=== PATIENT | male | born 2000 | race Caucasian/White ===

== ENCOUNTER → 2023-12-24 13:47 | Outpatient (CLI) | payer OTHER, SELFPAY ==
--- NOTE | 2023-12-24 13:51 | DI.ECHO.S_ITS ---
[facility] : : [address] : [address] : : [place], : : [place] [address] : : Phone: [phone] Echocardiogram Report + + :Name: MIKO BLOOM Study Date: 12/24/2023 Height: 74 in : :[facility] ReadingLocation: Weight: 170 lb : : Gender: Male BSA: 2.0 m2 : :: 2000 Age: 23 yrs BP: 107/75 mmHg: :Reason For Study: CARDIOMEGALY : :Ordering Physician: OZZIE, : :NICHOLAS Performed By: Meng Cotter : :Referring: NICHOLAS HORNE : + + Interpretation Summary The left ventricle is normal in size and wall thickness. Left ventricular systolic function is normal. The ejection fraction is estimated to be 55-60%. Diastolic parameters suggest probable normal left ventricular diastolic function and normal filling pressures. The right ventricle is normal size. The right ventricular systolic function is normal. No significant valvular pathology seen. The IVC is of normal diameter and collapses greater than 50% with a sniff. This suggests a low right atrial pressure of 3 mm Hg. Procedure: A two-dimensional transthoracic echocardiogram with color flow and Doppler was performed. The study quality was technically adequate. There is no prior echocardiogram noted for this patient. The patient was in normal sinus rhythm during the exam. The heart rate ranged between 61-79 bpm during the study. Left Ventricle: The left ventricle is normal in size and wall thickness. There is no thrombus. The ejection fraction is estimated to be 55-60%. Left ventricular systolic function is normal. There are no focal wall motion abnormalities. Diastolic parameters suggest probable normal left ventricular diastolic function and normal filling pressures. Right Ventricle: The right ventricle is normal size. The right ventricular systolic function is normal. Atria: The left atrial size is normal. Right atrial size is normal. The interatrial septum grossly appears intact with no obvious evidence for an atrial septal defect. Mitral Valve: The mitral valve leaflets appear normal. There is no evidence of stenosis, fluttering, or prolapse. There is no mitral valve stenosis. There is trace mitral regurgitation. Aortic Valve: The aortic valve is trileaflet. There is no aortic valve stenosis. No aortic regurgitation is present. Tricuspid Valve: The tricuspid valve is normal in structure and function. There is no tricuspid stenosis. There is trace tricuspid regurgitation. Pulmonary artery pressures cannot be estimated because of the lack of a measurable TR jet velocity. Pulmonic Valve: The pulmonic valve is not well visualized. There is no pulmonic valvular stenosis. There is no pulmonic valvular regurgitation. Great Vessels: The aortic root is normal size. The dimensions of the ascending aorta are normal. The IVC is of normal diameter and collapses greater than 50% with a sniff. This suggests a low right atrial pressure of 3 mm Hg. Pericardium/ Pleura There is no pericardial effusion. There is no pleural effusion. MMode/2D Measurements & Calculations LVIDd: 4.6 cm LVOT diam: 2.4 cm LVIDs: 3.0 cm Ao root diam: 2.8 cm IVSd: 0.89 cm asc Aorta Diam: 2.4 cm LVPWd: 1.1 cm LV brown. diameter/BSA (cm/m^2): 2.3 LV sys. diameter/BSA (cm/m^2): 1.5 FS: 34.5 % LA A2 area: 16.1 cm2 RA long axis: 4.6 cm LA A4 area: 13.9 cm2 RA area: 13.6 cm2 LA length (vol): 4.3 cm RA vol: 34.0 ml LA vol: 44.4 ml RA : 16.8 ml/m2 LA vol index: 21.9 ml/m2 RVD1 (basal): 3.2 cm IVC diam: 1.6 cm RVD2 (mid): 3.1 cm TAPSE: 2.4 cm Doppler Measurements & Calculations Ao V2 max: 88.4 cm/sec LVOT Max Donal: 82.0 cm/sec Ao V2 mean: 61.4 cm/sec LV V1 max P.7 mmHg Ao V2 VTI: 18.2 cm LV V1 VTI: 17.5 cm Ao max P.1 mmHg Ao mean P.7 mmHg DANIS(I,D): 4.2 cm2 MV E max donal: 66.8 cm/sec DANIS(V,D): 4.1 cm2 MV A max donal: 39.2 cm/sec DANIS indexed to BSA (cm^2/m^2): 2.1 MV E/A: 1.7 sev ratio: 0.96 Med Peak E' Donal: 12.4 cm/sec E/E' med: 5.4 Lat Peak E' Donal: 19.3 cm/sec E/E' lat: 3.5 E/e' average: 4.4 MV dec time: 0.14 sec PA V2 max: 96.7 cm/sec PA V2 mean: 68.9 cm/sec PA mean P.1 mmHg PA pr(Accel): 10.5 mmHg SV(LVOT): 76.6 ml Reading Physician:03:[id number] PM
--- NOTE | 2023-12-25 20:44 | DI.NM.S_ITS ---
DATE OF SERVICE: 12/24/2023 EXERCISE TREADMILL STRESS TEST REPORT PROCEDURE: Exercise treadmill stress test without imaging. ORDERING PROVIDER: Justin Riggins MD INDICATIONS: The patient is a 23-year-old male with an abnormal ECG, atypical chest discomfort, and dyspnea. FINDINGS: 1. The patient was able to exercise for 12 minutes on a standard Brayan protocol suggesting mildly reduced exercise capacity with an JACEK ofb+20%, achieving 12.8 METS. 2. He had a normal heart rate and blood pressure response to exercise, achieving a maximum heart rate of 196 bpm (99% of his predicted maximum). 3. He had no chest discomfort or other anginal symptoms. 4. His resting ECG shows sinus rhythm with increased QRS voltage and inferolateral T-wave inversions suggestive of LVH with repolarization abnormality, but nonspecific in a young adult. With stress, there are no significant ST-segment shifts although the T-wave inversion appears to improve and then return in recovery. There were no arrhythmias. IMPRESSION: 1. Probable normal exercise treadmill study but with reduced sensitivity and specificity because of baseline ECG abnormalities. 2. Mildly impaired exercise capacity without angina or arrhythmias. Dakota Delong - /cele/NATASHA doc#: [id number]/job#: [id number] dd: 12/25/2023 13:25:00 dt: 12/25/2023 18:52:00 DICTATING MD/COPIES TO: Carrillo Moore MD; Justin Riggins MD COPIES MNE: KAT
== END ==
PROVIDERS: Referring Provider Internal Medicine Cardiovascular Disease; Visit Provider Internal Medicine Cardiovascular Disease
DX: I51.7 Cardiomegaly (principal); R07.89 Other chest pain; R00.2 Palpitations; R94.31 Abnormal electrocardiogram [ECG] [EKG]
CPT/HCPCS: 93017; 93306

== ENCOUNTER → 2025-05-27 13:22 | Outpatient (CLI) | payer OTHER, SELFPAY ==
--- NOTE | 2025-05-27 13:25 | DI.RAD.S_ITS ---
PROCEDURE: XR LUMBAR SPINE MIN 4V INDICATIONS: BACK PAIN TECHNIQUE: 5 views of the lumbar spine were acquired, including bilateral oblique views. COMPARISON: None. FINDINGS: Bones: 4 nonrib-bearing vertebrae are present. Bilateral sacralization of L5. There is normal bony alignment. No vertebral body compression fractures. No suspicious bony lesions. Soft tissues: Overlying bowel gas pattern is normal. No suspicious soft tissue calcifications. Oblique images: No pars defects. IMPRESSION: No acute bony abnormality. Dictated by: Junior Valentino M.D. on 05/27/2025 at 13:55 Approved by: Junior Valentino M.D. on 05/27/2025 at 13:56
--- NOTE | 2025-05-27 13:25 | DI.RAD.S_ITS ---
PROCEDURE: XR KNEE RT 3V INDICATIONS: RIGHT KNEE PAIN TECHNIQUE: 3 views of the knee were acquired. COMPARISON: None. FINDINGS: Bones: No fractures or dislocations. No suspicious bony lesions. Soft tissues: No joint effusion. No suspicious soft tissue calcifications. IMPRESSION: No acute bony abnormality or significant effusion. Dictated by: Junior Valentino M.D. on 05/27/2025 at 13:56 Approved by: Junior Valentino M.D. on 05/27/2025 at 13:57
--- NOTE | 2025-05-27 13:25 | DI.RAD.S_ITS ---
PROCEDURE: XR KNEE LT 3V INDICATIONS: LEFT KNEE PAIN TECHNIQUE: 3 views of the knee were acquired. COMPARISON: None. FINDINGS: Bones: No fractures or dislocations. No suspicious bony lesions. Soft tissues: No joint effusion. No suspicious soft tissue calcifications. IMPRESSION: No acute bony abnormality or significant effusion. Dictated by: Junior Valentino M.D. on 05/27/2025 at 13:56 Approved by: Junior Valentino M.D. on 05/27/2025 at 13:56
== END ==
PROVIDERS: Referring Provider Physical Medicine & Rehabilitation; Visit Provider Physical Medicine & Rehabilitation
DX: M54.9 Dorsalgia, unspecified (principal); M25.562 Pain in left knee; M25.561 Pain in right knee; Q76.49 Other congenital malformations of spine, not associated with scoliosis
CPT/HCPCS: 72110; 73562